=== PATIENT | male | born 1945 | race Asian ===

== ENCOUNTER 2017-03-14 17:56 | Inpatient (IN) | payer MEDICARE, BC ==
--- NOTE | 2017-03-14 18:22 | ED Physician Documentation ---
PD HPI URI - Stated complaint Stated Complaint: SOA/VOMIT - Chief complaint Chief Complaint: Resp - History obtained from History obtained from: Patient - History of Present Illness Timing - onset: How many weeks ago (1 week of general flu-like symptoms and then 2 days of particularly cough, dyspnea, and exertional dyspnea. Having heavy feeling of chest.) Timing duration: Weeks (1) Timing details: Gradual onset, Still present (cough and dyspnea has increased a lot the past 2 days.) Associated symptoms: Fever, Chills, Nasal congestion, Dry cough, Chest pain, Dyspnea, NVD. No: Hemoptysis, Bilateral edema, Unilateral edema Contributing factors: No: Sick contact, Travel, Immunocompromised, COPD / asthma Improves by: Rest Worsened by: Activity, Breathing Similar symptoms before: Has not had sx before Recently seen: Not recently seen Review of Systems Constitutional: reports: Fever, Chills, Myalgias, Fatigue Nose: reports: Congestion Throat: denies: Sore throat Cardiac: reports: Chest pain / pressure (for 2-3 days, increasing). denies: Palpitations Respiratory: reports: Dyspnea, Cough. denies: Hemoptysis GI: reports: Nausea, Vomiting. denies: Abdominal Pain, Diarrhea : denies: Dysuria, Frequency Skin: denies: Rash, Lesions Neurologic: reports: Generalized weakness. denies: Focal weakness, Numbness Psychiatric: denies: Anxiety Endocrine: denies: Weight loss Immunocompromised: denies: Immunocompromised PD PAST MEDICAL HISTORY - Past Medical History Past Medical History: Yes Cardiovascular: Hypertension, High cholesterol Respiratory: None Endocrine/Autoimmune: None GI: None : Retention HEENT: None Psych: None Musculoskeletal: Osteoarthritis, Chronic back pain Derm: None - Past Surgical History General: Colonoscopy, EGD HEENT: Tonsil/Adenoidectomy - Present Medications Home Medications: Ambulatory Orders Medication Instructions Recorded Confirmed Amlodipine Besylate 10 mg PO DAILY 03/11/14 03/14/17 Atorvastatin [Lipitor] 10 mg PO DAILY 03/11/14 03/14/17 Gabapentin 300 mg PO QPM 03/11/14 03/14/17 Metoprolol Succinate 100 mg PO BID 03/11/14 03/14/17 traMADol [Ultram] 50 mg PO Q4-6H 03/11/14 03/14/17 - Allergies Allergies/Adverse Reactions: Allergies Allergy/AdvReac Type Severity Reaction Status Date / Time Penicillins Allergy Severe Respiratory Verified 03/11/14 08:49 morphine AdvReac Itching Verified 03/11/14 08:49 - Living Situation Living Situation: reports: With spouse/s.o. Living Arrangement: reports: At home - Social History Does the pt smoke?: Yes Does the pt drink ETOH?: No Does the pt have substance abuse?: No - Family History Family history: reports: Non contributory PD ED PE NORMAL - Vitals Vital signs reviewed: Yes (93% RA at rest, but down to 88% and marked dyspnea just walking to bathroom) - General General: Alert and oriented X 3, Well developed/nourished (appears younger than stated age.) - HEENT HEENT: Ears normal, Pharynx benign. No: Moist mucous membranes - Neck Neck: Supple, no meningeal sign, No adenopathy - Cardiac Cardiac: No: RRR (regular but tachycardic) - Respiratory Respiratory: No respiratory distress. No: Clear bilaterally (congested sounds bilaterally. No fine crackles. Scattered expiratory wheezes. Normal voice. ) - Abdomen Abdomen: Soft, Non tender - Male Male : Deferred - Rectal Rectal: Deferred - Back Back: No CVA TTP - Derm Derm: Warm and dry. No: Normal color (mild pallor) - Extremities Extremities: No deformity, No tenderness to palpate, Normal ROM s pain, No edema , No calf tenderness / cord - Neuro Neuro: Alert and oriented X 3, No motor deficit, Normal speech Eye Opening: Spontaneous Motor: Obeys Commands Verbal: Oriented GCS Score: 15 - Psych Psych: Normal mood, Normal affect Results - Vitals Vitals: Vital Signs - 24 hr 03/14/17 03/14/17 03/14/17 18:02 18:06 19:25 Temperature 37.3 C Heart Rate 102 H 102 H 87 Respiratory 22 20 Rate Blood Pressure 163/89 H 163/89 H O2 Saturation 93 03/14/17 03/14/17 03/14/17 19:45 19:50 20:39 Temperature Heart Rate 119 H 104 H 97 Respiratory 33 H 22 19 Rate Blood Pressure 154/73 H O2 Saturation 88 L 92 96 03/14/17 03/14/17 21:08 21:33 Temperature Heart Rate 96 112 H Respiratory 20 20 Rate Blood Pressure 156/71 H O2 Saturation 92 Oxygen O2 Source Room air - EKG (time done) 18:09 Rate: Rate (enter#) (93) Rhythm: NSR Strang: Normal Intervals: Normal IL, Wide QRS (borderline IVCD) QRS: Poor R wave progression Ischemia: Normal ST segments. No: ST elevation c/w ischemia, ST depression Compare to prior EKG: Old EKG unavailable - Labs Labs: Laboratory Tests 03/14/17 03/14/17 03/14/17 18:40 18:48 18:48 WBC 16.4 H RBC 3.82 L Hgb 12.1 L Hct 36.4 L MCV 95.4 H MCH 31.7 H MCHC 33.2 RDW 12.5 Plt Count 408 MPV 7.1 L Neut # 13.2 H Lymph # 1.5 Cavalier # 1.4 H Eos # 0.2 Baso # 0.1 Absolute Nucleated RBC 0.00 Nucleated RBC % 0.0 Sodium 131 L Potassium 3.8 Chloride 99 L Carbon Dioxide 24 Anion Gap 8.0 BUN 16 Creatinine 0.9 Estimated GFR (MDRD) 83 L Glucose 141 H Calcium 8.1 L Total Bilirubin 0.3 AST 64 H ALT 82 H Alkaline Phosphatase 56 Troponin I < 0.04 B-Natriuretic Peptide Total Protein 7.1 Albumin 3.0 L Globulin 4.1 Albumin/Globulin Ratio 0.7 L Lipase 21 L Influenza A (Rapid) Influenza B (Rapid) Influenza Types A,B Ag 03/14/17 03/14/17 18:48 18:55 WBC RBC Hgb Hct MCV MCH MCHC RDW Plt Count MPV Neut # Lymph # Cavalier # Eos # Baso # Absolute Nucleated RBC Nucleated RBC % Sodium Potassium Chloride Carbon Dioxide Anion Gap BUN Creatinine Estimated GFR (MDRD) Glucose Calcium Total Bilirubin AST ALT Alkaline Phosphatase Troponin I B-Natriuretic Peptide 253 H Total Protein Albumin Globulin Albumin/Globulin Ratio Lipase Influenza A (Rapid) Negative Influenza B (Rapid) Negative Influenza Types A,B Ag - - Rads (name of study) chest Radiology: Prelim report reviewed (patchy infiltrates c/w pneumonia), EMP read contemporaneously Procedures - Bedside sono Bedside sono by EMP: Heart showing concentric contractions with good dynamics, and no pericardial effusion. PD MEDICAL DECISION MAKING - ED course Complexity details: reviewed results, re-evaluated patient (he is still having marked dyspnea with just walking to bathroom, with sats down to 88% and tachycardic to 112. Bedside U/S shows good dynamic beating without obvious enlargement nor pericardial effusion. Treating as pneumonia. ), considered differential, d/w patient Departure - Departure Disposition: 66 [facility] DC/Xfer Clinical Impression: Hypoxia Pneumonia Qualifiers: Pneumonia type: due to unspecified organism Laterality: bilateral Lung location : unspecified part of lung Qualified Code(s): J18.9 - Pneumonia, unspecified organism Dyspnea Qualifiers: Dyspnea type: dyspnea on exertion Qualified Code(s): R06.09 - Other forms of dyspnea Condition: Stable Record reviewed to determine appropriate education?: Yes
[2017-03-14] MEDS ORDERED: ONDANSETRON 4 MG/2 ML VIAL IVP STA (18:39)
[2017-03-14] MEDS ORDERED: SODIUM CHLORIDE 0.9% 1,000 ML IV ONE (18:39)
[2017-03-14] MEDS ORDERED: ALBUTEROL NEB 2.5 MG/3 ML INH STA (18:40)
[2017-03-14 18:55] LABS: BASOPHILS # (AUTO) 0.1 10^3/uL (0.0-0.1); BASOPHILS % (AUTO) 0.5 %; EOSINOPHILS # (AUTO) 0.2 10^3/uL (0.0-0.7); HGB - HEMOGLOBIN 12.1 g/dL (14.0-18.0); LYMPHOCYTES # (AUTO) 1.5 10^3/uL (1.5-3.5); LYMPHOCYTES % (AUTO) 9.3 %; MEAN CORPUSCULAR HEMOGLOBIN 31.7 pg (27.0-31.0); MEAN CORPUSCULAR HGB CONC 33.2 g/dL (32.0-36.0); MEAN CORPUSCULAR VOLUME 95.4 fL (80.0-94.0); MEAN PLATELET VOLUME 7.1 fL (7.4-11.4); MONOCYTES # (AUTO) 1.4 10^3/uL (0.0-1.0); MONOCYTES % (AUTO) 8.7 %; NEUTROPHILS # (AUTO) 13.2 10^3/uL (1.5-6.6); NEUTROPHILS % (AUTO) 80.5 %; PLT - PLATELET COUNT 408 10^3/uL (130-450); RED BLOOD COUNT 3.82 10^6/uL (4.70-6.10); RED CELL DISTRIBUTION WIDTH 12.5 % (12.0-15.0); WHITE BLOOD COUNT 16.4 x10^3/uL (4.8-10.8)
[2017-03-14 19:09] LABS: ALBUMIN/GLOBULIN RATIO 0.7 (1.0-2.2); BILIRUBIN,TOTAL 0.3 mg/dL (0.2-1.0); CALCIUM 8.1 mg/dL (8.5-10.3); CREATININE 0.9 mg/dL (0.6-1.2); TOTAL PROTEIN 7.1 g/dL (6.7-8.2)
--- NOTE | 2017-03-14 19:34 | XRAY Preliminary Report ---
Exam: XR CHEST 2 VIEW X-RAY IMPRESSION: Acute on chronic lung disease consisting of a small right posterior lung base infiltrate and effusion. [facility] SITE ID: [id number]
--- NOTE | 2017-03-14 19:46 | XRAY Report ---
EXAM: CHEST RADIOGRAPHY EXAM DATE: 03/14/2017 07:19 PM. CLINICAL HISTORY: Cough and dyspnea. COMPARISON: None. TECHNIQUE: 2 views. FINDINGS: Lungs/Pleura: Overexpanded. Emphysematous changes. Segmental interstitial infiltrate at the posterior basilar segment of the right lower lobe with minimal blunting of the right posterior costophrenic an gle. No pneumothorax. Mediastinum: Heart and mediastinal contours are unremarkable. Other: None. IMPRESSION: Acute on chronic lung disease consisting of a small right posterior lung base infiltrate and effusion . [facility] Referring Provider Line: [phone] SITE ID: [id number]
[2017-03-14] MEDS ORDERED: cefTRIAXone 1 GM VIAL IVP STA (19:53)
[2017-03-14] MEDS ORDERED: AZITHROMYCIN INJ 500 MG in SODIUM CHLORIDE 0.9% 250 ML IV STA (19:53)
[2017-03-14] MEDS ORDERED: DEXAMETHASONE 10 MG/ML VIAL IVP STA (20:30)
[2017-03-14] MEDS ORDERED: LEVALBUTEROL 1.25 MG/3 ML NEB INH STA (20:30)
[2017-03-14] MEDS ORDERED: PROCHLORPERAZINE 10 MG/2 ML VIAL IVP PRN (22:23)
[2017-03-14] MEDS ORDERED: HYDROcod/ACETAM 5/325 MG TABLET PO PRN (22:23)
[2017-03-14] MEDS ORDERED: SODIUM CHLORIDE FLUSH 0.9% 10 ML SYRINGE IVP PRN (22:23)
[2017-03-14] MEDS ORDERED: TEMAZEPAM 15 MG CAPSULE PO PRN (22:23)
--- NOTE | 2017-03-14 22:30 | HISTORY & PHYSICAL EXAMINATION ---
History of Present Illness - Admitted From Admitted From:: Home - History Obtained From History obtained from: patient - History of Present Illness HPI Comment/Other: Mr. Paramjit Valdez is a very pleasant 71-year-old gentleman who had the flu last week which he says he caught from his . He was getting better, then a few days ago began to have increasing shortness of breath especially when ambulating. His shortness of breath has persisted and worsened to the point where he decided he needed to come into the emergency department tonight for an evaluation. He was found to have a patchy infiltrate consistent with pneumonia and an elevated white blood cell count. His BNP is mildly elevated and his troponins are negative and there were no changes on his EKG is suggestive of acardiovascular event at this time. He desaturates down to the high 80s whenever he ambulates. History - Past Medical History Cardiovascular: reports: Hypertension, High cholesterol Respiratory: reports: None, Shortness of breath, Other (bronchitis history) Endocrine/Autoimmune: reports: None GI: reports: None MAT TESTER: reports: None : reports: Incontinence, Other (History of prostate cancer and prostate cancer surgery) HEENT: reports: None Psych: reports: None Musculoskeletal: reports: Osteoarthritis, Chronic back pain Derm: reports: None MRSA Hx?: No - Past Surgical History General: reports: Colonoscopy, EGD /MAT TESTER: reports: Other (History of prostate surgery) HEENT: reports: Tonsil/Adenoidectomy - Family & Social History Family History: Mother: , Cancer, Hypertension, Father: , CVA/ TIA, Hyperlipidemia, Brother: Living arrangement: At home Living Situation: With spouse/s.o. - Substance History Use: Uses substance without health or social issues: Alcohol Tobacco Details: Cigarettes, Other (Patient smoked for 30 years and quit 30 years ago.) - POLST Patient has POLST: Yes POLST Status: DNR Meds/Allgy - Home Medications Home Medications: Ambulatory Orders Medication Instructions Recorded Confirmed Amlodipine Besylate 10 mg PO DAILY 03/11/14 03/14/17 Atorvastatin [Lipitor] 10 mg PO DAILY 03/11/14 03/14/17 Gabapentin 300 mg PO QPM 03/11/14 03/14/17 Metoprolol Succinate 100 mg PO BID 03/11/14 03/14/17 traMADol [Ultram] 50 mg PO Q4-6H 03/11/14 03/14/17 - Allergies Allergies/Adverse Reactions: Allergies Allergy/AdvReac Type Severity Reaction Status Date / Time Penicillins Allergy Severe Respiratory Verified 03/11/14 08:49 morphine AdvReac Itching Verified 03/11/14 08:49 Review of Systems - Constitutional Constitutional: reports: Fatigue, Weakness. denies: Fever, Chills, Malaise - Eyes Eyes: denies: Pain, Irritation, Blurred vision, Field loss, Dipolpia - Ears, Nose & Throat Ears, Nose & Throat: denies: Ear pain, Hearing loss, Tinnitus, Vertigo, Nasal pain, Nasal discharge - Cardiovascular Cariovascular: denies: Irregular heart rate, Palpitations, Chest pain, Edema - Respiratory Respiratory: reports: Cough, Sputum production, SOB with exertion. denies: Wheezing, Snoring, Hemoptysis, Orthopnea, SOB at rest - Gastrointestinal Gastrointestinal: denies: Abdominal pain, Abdominal distention, Constipation, Diarrhea, Change in bowel habits, Rectal bleeding - Genitourinary Genitourinary: denies: Dysuria, Frequency, Urgency, Hematuria - Musculoskeletal Musculoskeletal: denies: Muscle pain, Back pain, Muscle aches, Stiffness - Integumentary Integumentary: denies: Rash, Pruritis, Lesions, Dryness - Neurological Neurological: denies: General weakness, Focal weakness, Headache, Numbness - Psychiatric Psychiatric: denies: Depression, Anxiety, Suicidal, Hallucinations - Endocrine Endocrine: denies: Polyuria, Polydypsia, Polyphagia - Hematologic/Lymphatic Hematologic/Lymphatic: denies: Anemia, Bruising, Petechiae, Lymphadenopathy - All Other Systems All Other Systems: reports: Reviewed and negative Exam - Vital Signs Reviewed Vital Signs: Yes Vital Signs: Vital Signs x48h Temp Pulse Resp BP Pulse Ox 03/14/17 21:33 112 H 20 156/71 H 92 03/14/17 21:08 96 20 03/14/17 20:39 97 19 154/73 H 96 03/14/17 19:50 104 H 22 92 03/14/17 19:45 119 H 33 H 88 L 03/14/17 19:25 87 20 03/14/17 18:06 102 H 163/89 H 03/14/17 18:02 37.3 C 102 H 22 163/89 H 93 - Physical Exam General Appearance: positive: No acute distress, Alert Eyes Bilateral: positive: Normal inspection, PERRL, EOMI, No lid inflammation, Conjunctivae nml ENT: positive: ENT inspection nml, Pharynx nml, No signs of dehydration Neck: positive: Nml inspection, Thyroid nml, No JVD, Trachea midline. negative : Thyromegaly Respiratory: positive: Chest non-tender, No respiratory distress, Breath sounds nml. negative: Wheezes, Rales, Rhonchi Cardiovascular: positive: Regular rate & rhythm, No murmur, No gallop Peripheral Pulses: positive: 1+ Abdomen: positive: Non-tender, No organomegaly, Nml bowel sounds, No distention. negative: Guarding, Rebound Back: positive: Nml inspection. negative: CVA tenderness (R), CVA tenderness (L ) Skin: positive: Color nml, No rash, Warm, Dry. negative: Cyanosis Extremities: positive: Non-tender, Full ROM, Nml appearance, No pedal edema Neurologic/Psychiatric: positive: Oriented x3, CN's nml (2-12), Motor nml, Sensation nml, Mood/affect nml Conclusion/Plan - Problem List (1) Pneumonia Conclusion/Plan: The patient shows emphysematous changes on chest x-ray with a right posterior infiltrate. We will continue the ceftriaxone and azithromycin IV antibiotics and supplemental oxygen. We will add nebulizer treatments 4 times a day and monitor the patient's vital signs and lab values closely. Qualifiers: Qualified Code(s): J18.9 - Pneumonia, unspecified organism (2) Hypoxia Conclusion/Plan: We will continue the patient on supplemental oxygen, IV antibiotics, and nebulizer treatments as needed. - Lab Results Lab results reviewed: Yes Fish Bones: 03/14/17 18:40 03/14/17 18:48 - Diagnostic Imaging Results Diagnostic Imaging Results: positive: Final report reviewed Diagnostic Imaging Results Comments: EXAM: CHEST RADIOGRAPHY EXAM DATE: 03/14/2017 07:19 PM. CLINICAL HISTORY: Cough and dyspnea. COMPARISON: None. TECHNIQUE: 2 views. FINDINGS: Lungs/Pleura: Overexpanded. Emphysematous changes. Segmental interstitial infiltrate at the posterior basilar segment of the right lower lobe with minimal blunting of the right posterior costophrenic angle. No pneumothorax. Mediastinum: Heart and mediastinal contours are unremarkable. Other: None. IMPRESSION: Acute on chronic lung disease consisting of a small right posterior lung base infiltrate and effusion. Core Measures - Anticipated LOS I expect patient to be DC'd or transferred within 96 hours.: Yes - DVT/VTE - Prophylaxis VTE/DVT Device ordered at admit?: Yes
[2017-03-14] MEDS ORDERED: PANTOPRAZOLE 40 MG TABLET PO STA (23:12)
[2017-03-14] MEDS ORDERED: PANTOPRAZOLE 40 MG TABLET PO SCH (23:16)
[2017-03-14] MEDS: D5.45NS W/20 MEQ KCL 1,000 ML IV SCH (23:52)
[2017-03-15] MEDS: METOPROLOL SUCCINATE 50 MG TABLET PO SCH ×3 (00:20→21:11)
[2017-03-15] MEDS: GABAPENTIN 300 MG CAPSULE PO SCH ×2 (00:22→21:11)
[2017-03-15] MEDS ORDERED: PHENOL THROAT SPRAY 177 ML MM PRN (00:26)
[2017-03-15] MEDS ORDERED: ATORVASTATIN 10 MG TABLET PO SCH (00:30)
[2017-03-15] MEDS: BENZOCAINE/MENTHOL LOZENGE MM PRN ×2 (00:40→21:11)
[2017-03-15] MEDS: SODIUM CHLORIDE FLUSH 0.9% 10 ML SYRINGE IVP SCH ×3 (03:49→21:10)
[2017-03-15 05:54] LABS: BASOPHILS % (AUTO) 0.2 %; LYMPHOCYTES # (AUTO) 0.8 10^3/uL (1.5-3.5); LYMPHOCYTES % (AUTO) 6.1 %; MEAN CORPUSCULAR HEMOGLOBIN 31.8 pg (27.0-31.0); MEAN CORPUSCULAR HGB CONC 33.6 g/dL (32.0-36.0); MEAN CORPUSCULAR VOLUME 94.4 fL (80.0-94.0); MEAN PLATELET VOLUME 7.3 fL (7.4-11.4); MONOCYTES # (AUTO) 0.4 10^3/uL (0.0-1.0); MONOCYTES % (AUTO) 2.7 %; NEUTROPHILS # (AUTO) 12.1 10^3/uL (1.5-6.6); PLT - PLATELET COUNT 383 10^3/uL (130-450); RED BLOOD COUNT 3.45 10^6/uL (4.70-6.10); RED CELL DISTRIBUTION WIDTH 12.6 % (12.0-15.0); WHITE BLOOD COUNT 13.3 x10^3/uL (4.8-10.8)
[2017-03-15 06:04] LABS: CALCIUM 7.9 mg/dL (8.5-10.3); CREATININE 0.9 mg/dL (0.6-1.2)
[2017-03-15] MEDS ORDERED: cefTRIAXone 2 GM VIAL ONE (08:21)
[2017-03-15] MEDS: AZITHROMYCIN 250 MG TABLET PO SCH (08:22)
[2017-03-15] MEDS: PANTOPRAZOLE 40 MG TABLET PO SCH (08:22)
[2017-03-15] MEDS: ATORVASTATIN 10 MG TABLET PO SCH (08:22)
[2017-03-15] MEDS: amLODIPine 5 MG TABLET PO SCH (08:23)
[2017-03-15] MEDS: D5.45NS W/20 MEQ KCL 1,000 ML IV SCH (08:24)
[2017-03-15] MEDS: POLYETHYLENE GLYCOL 3350 17 GM PACKET PO SCH (08:25)
[2017-03-15] MEDS ORDERED: METOPROLOL SUCCINATE 50 MG TABLET PO SCH (09:00)
[2017-03-15] MEDS ORDERED: cefTRIAXone 2 GM in SODIUM CHLORIDE 0.9% MINIBAG 100 ML IV SCH (09:00)
[2017-03-15] MEDS: traMADol 50 MG TABLET PO PRN ×2 (14:29→21:18)
--- NOTE | 2017-03-15 14:50 | PROVIDER PROGRESS NOTE ---
Subjective - Prog Note Date Prog Note Date: 03/15/17 Prog Note Time: 12:00 - Subjective Pt reports feeling: Improved Subjective: Paramjit admits to feeling much improved since the time of admission. He denies chest pain, SOB, N/V or a new cough. Current Medications - Current Medications Current Medications: Active Medications Acetaminophen/Hydrocodone Bitart (Nunnelly 5/325) 1 tab PO Q4HR PRN PRN Reason: Pain 5 to 7 Last Admin: 03/15/17 00:30 Dose: 1 tab Amlodipine Besylate (Norvasc) 10 mg PO DAILY [facility] Last Admin: 03/15/17 08:23 Dose: 10 mg Atorvastatin Calcium (Lipitor) 10 mg PO DAILY [facility] Last Admin: 03/15/17 08:22 Dose: 10 mg Azithromycin (Zithromax) 500 mg PO DAILY [facility] Last Admin: 03/15/17 08:22 Dose: 500 mg Gabapentin (Neurontin) 300 mg PO QPM [facility] Last Admin: 03/15/17 00:22 Dose: 300 mg Guaifenesin (Mucinex) 600 mg PO BID [facility] Ceftriaxone Sodium 2 gm/ (Sodium Chloride) 100 mls @ 200 mls/hr IV DAILY [facility] Last Infusion: 03/15/17 08:53 Dose: Infused Metoprolol Succinate (Toprol Xl) 100 mg PO BID [facility] Last Admin: 03/15/17 08:21 Dose: 100 mg Pantoprazole Sodium (Protonix) 40 mg PO DAILY [facility] Last Admin: 03/15/17 08:22 Dose: 40 mg Phenol/Menthol (Chloraseptic) 2 sprays MM Q2HR PRN PRN Reason: Throat Pain Last Admin: 03/15/17 00:40 Dose: 2 sprays Polyethylene Glycol (Miralax) 17 gm PO DAILY [facility] Last Admin: 03/15/17 08:25 Dose: Not Given Prochlorperazine Edisylate (Compazine Inj) 10 mg IVP Q6HR PRN PRN Reason: Nausea / Vomiting Sodium Chloride (Normal Saline Flush 0.9%) 10 ml IVP PRN PRN PRN Reason: NEEDED PER PROVIDER ORDERS Sodium Chloride (Normal Saline Flush 0.9%) 10 ml IVP Q8HR [facility] Last Admin: 03/15/17 03:49 Dose: Not Given Temazepam (Restoril) 15 mg PO QPM PRN PRN Reason: Insomnia Last Admin: 03/15/17 00:22 Dose: 15 mg Throat Lozenges (Cepacol) 1 lozenge MM Q2HR PRN PRN Reason: Throat pain Last Admin: 03/15/17 00:40 Dose: 1 lozenge Tramadol HCl (Ultram) 50 mg PO Q4H PRN PRN Reason: PAIN Last Admin: 03/15/17 14:29 Dose: 50 mg Amlodipine Besylate 10 mg PO DAILY 03/11/14 Atorvastatin [Lipitor] 10 mg PO QPM 03/11/14 Gabapentin 300 mg PO QPM 03/11/14 traMADol [Ultram] 100 mg PO QPM 03/11/14 Aspirin [Aspirin EC] 81 mg PO DAILY 03/15/17 Metoprolol Tartrate 100 mg PO BID 03/15/17 traMADol [Ultram] 50 mg PO Q6H PRN 03/15/17 Objective - Vital Signs/Intake & Output Reviewed Vital Signs: Yes Vital Signs: Vital Signs x48h Temp Pulse Resp BP Pulse Ox 03/15/17 07:58 36.2 C L 81 12 149/62 H 96 Intake & Output: Intake & Output 03/12/17 03/13/17 03/14/17 03/15/17 23:59 23:59 23:59 23:59 Intake Total 1863.333 Balance 1863.333 - Objective General Appearance: positive: No acute distress Eyes Bilateral: positive: Normal inspection, PERRL ENT: positive: ENT inspection nml, Pharynx nml, No signs of dehydration Neck: positive: Nml inspection, Thyroid nml, No JVD, Trachea midline Respiratory: positive: Chest non-tender, No respiratory distress, Other ( diminished with scattered crackles.) Cardiovascular: positive: Regular rate & rhythm, No gallop, Systolic murmur, Decreased pulse(s) Peripheral Pulses: 1+ Radial (R), 1+ Radial (L) Abdomen: positive: Non-tender, No organomegaly, Nml bowel sounds, No distention Back: positive: Nml inspection Skin: positive: No rash, Warm, Dry Extremities: positive: Non-tender, Full ROM, Nml appearance, Pedal edema (mild) Neurologic/Psychiatric: positive: Oriented x3, CN's nml (2-12), Motor nml, Sensation nml, Mood/affect nml Reflexes: Bicep (R): 3+, Bicep (L): 3+ - Lab Results Fish Bones: 03/15/17 05:34 03/15/17 05:34 Other Labs: Lab Results x24hrs 03/15/17 03/15/17 Range/Units 05:34 05:34 WBC 13.3 H (4.8-10.8) x10^3/uL RBC 3.45 L (4.70-6.10) 10^6/uL Hgb 11.0 L (14.0-18.0) g/dL Hct 32.6 L (42.0-52.0) % MCV 94.4 H (80.0-94.0) fL MCH 31.8 H (27.0-31.0) pg MCHC 33.6 (32.0-36.0) g/dL RDW 12.6 (12.0-15.0) % Plt Count 383 (130-450) 10^3/uL MPV 7.3 L (7.4-11.4) fL Neut # 12.1 H (1.5-6.6) 10^3/uL Lymph # 0.8 L (1.5-3.5) 10^3/uL [place] # 0.4 (0.0-1.0) 10^3/uL Eos # 0.0 (0.0-0.7) 10^3/uL Baso # 0.0 (0.0-0.1) 10^3/uL Absolute Nucleated RBC 0.00 x10^3/uL Nucleated RBC % 0.0 /100WBC Sodium 134 L (135-145) mmol/L Potassium 5.1 H (3.5-5.0) mmol/L Chloride 103 (101-111) mmol/L Carbon Dioxide 23 (21-32) mmol/L Anion Gap 8.0 (6-13) BUN 14 (6-20) mg/dL Creatinine 0.9 (0.6-1.2) mg/dL Estimated GFR (MDRD) 83 L (>89) Glucose 182 H (70-100) mg/dL Calcium 7.9 L (8.5-10.3) mg/dL - Diagnostic Imaging Diagnostic Imaging Results: positive: Final report reviewed Diagnostic Imaging Comments: EXAM: CHEST RADIOGRAPHY EXAM DATE: 03/14/2017 07:19 PM. CLINICAL HISTORY: Cough and dyspnea. COMPARISON: None. TECHNIQUE: 2 views. FINDINGS: Lungs/Pleura: Overexpanded. Emphysematous changes. Segmental interstitial infiltrate at the posterior basilar segment of the right lower lobe with minimal blunting of the right posterior costophrenic angle. No pneumothorax. Mediastinum: Heart and mediastinal contours are unremarkable. Other: None. IMPRESSION: Acute on chronic lung disease consisting of a small right posterior lung base infiltrate and effusion. Assessment/Plan - Problem List (1) Right lower lobe pneumonia Impression: A chest x-ray was completed at the time of admission and reveals a right low lobe infiltrate. He admits to a continued cough that has not been productive. Plan: Continue IV antibiotics and newly prescribed musinex for productive cough. Attempt to obtain a sputum sample. (2) Hypoxia Impression: Patient was profoundly short of breath when presenting to the ED. He received nebulizers, which he claims "did not work". Now remains off oxygen and with nebulizers. Plan: Will add PRN nebulizers and incentive spirometry per RT. (3) Hypertension Impression: This condition is likely related to age and smoking history. Blood pressure 149 /62 and stable. Plan: Continue current medications with home meds and monitor vital signs.
[2017-03-15] MEDS: LEVALBUTEROL 1.25 MG/3 ML NEB INH PRN (15:33)
[2017-03-15] MEDS: guaiFENesin 600 MG TABLET PO SCH ×2 (16:20→21:11)
[2017-03-15] MEDS ORDERED: GABAPENTIN 300 MG CAPSULE PO SCH (21:00)
[2017-03-16] MEDS: BENZOCAINE/MENTHOL LOZENGE MM PRN (00:44)
[2017-03-16 05:33] LABS: BASOPHILS % (AUTO) 0.2 %; HGB - HEMOGLOBIN 11.1 g/dL (14.0-18.0); LYMPHOCYTES # (AUTO) 1.7 10^3/uL (1.5-3.5); LYMPHOCYTES % (AUTO) 9.9 %; MEAN CORPUSCULAR HEMOGLOBIN 30.8 pg (27.0-31.0); MEAN CORPUSCULAR VOLUME 96.2 fL (80.0-94.0); MEAN PLATELET VOLUME 7.4 fL (7.4-11.4); MONOCYTES # (AUTO) 1.5 10^3/uL (0.0-1.0); MONOCYTES % (AUTO) 8.5 %; NEUTROPHILS # (AUTO) 14.2 10^3/uL (1.5-6.6); NEUTROPHILS % (AUTO) 81.4 %; PLT - PLATELET COUNT 444 10^3/uL (130-450); RED BLOOD COUNT 3.59 10^6/uL (4.70-6.10); RED CELL DISTRIBUTION WIDTH 12.9 % (12.0-15.0); WHITE BLOOD COUNT 17.5 x10^3/uL (4.8-10.8)
[2017-03-16 05:38] LABS: CALCIUM 8.3 mg/dL (8.5-10.3); CREATININE 0.9 mg/dL (0.6-1.2)
[2017-03-16] MEDS: SODIUM CHLORIDE FLUSH 0.9% 10 ML SYRINGE IVP SCH (05:57)
[2017-03-16] MEDS: LEVALBUTEROL 1.25 MG/3 ML NEB INH PRN (08:36)
[2017-03-16 08:59] VITALS: BP 153/65
[2017-03-16] MEDS: POLYETHYLENE GLYCOL 3350 17 GM PACKET PO SCH (09:24)
[2017-03-16] MEDS: guaiFENesin 600 MG TABLET PO SCH (09:25)
[2017-03-16] MEDS: amLODIPine 5 MG TABLET PO SCH (09:25)
[2017-03-16] MEDS: METOPROLOL SUCCINATE 50 MG TABLET PO SCH (09:25)
[2017-03-16] MEDS: PANTOPRAZOLE 40 MG TABLET PO SCH (09:25)
[2017-03-16] MEDS: AZITHROMYCIN 250 MG TABLET PO SCH (09:25)
[2017-03-16] MEDS: traMADol 50 MG TABLET PO PRN (09:25)
[2017-03-16] MEDS: ATORVASTATIN 10 MG TABLET PO SCH (10:13)
--- NOTE | 2017-03-16 10:51 | Discharge Plan ---
Discharge Plan Disposition: 01 Home, Self Care Condition: Good Prescriptions: Fluticasone/Salmeterol [Advair 250-50 Diskus] 1 each IH BID #1 blst.w.dev guaiFENesin [Mucinex] 600 mg PO BID #60 tablet levoFLOXacin [Levofloxacin] 500 mg PO DAILY 7 Days #7 tablet Saccharomyces Boulardii [Florastor] 250 mg PO BID 14 Days #28 capsule Diet: Regular Activity Restrictions: No Restrictions Shower Restrictions: No Driving Restrictions: No Weight Bearing: Full Weight Additional Instructions or Follow Up instructions: You were admitted to the hospital after having the flu that developed into pneumonia. I recommended a long term acute care registered nurse inhaler to prevent further illnesses. Please see your PCP within one week of this stay. Take all of your medications as prescribed. No Smoking: If you smoke, Please STOP! Call for help. Follow-up with: Dionicio Barksdale MD [Primary Care Provider] -
[2017-03-16 10:54] LABS: HEMOGLOBIN A1C 0.49 g/dL; HEMOGLOBIN A1C % 5.9 % (4.6-6.2)
--- NOTE | 2017-03-16 11:03 | DISCHARGE SUMMARY ---
Discharge Summary Admit Date: 03/14/17 Discharge Date: 03/16/17 Discharging Provider: KWAN Manzo Primary Care Provider: Dionicio Barksdale Code Status: Attempt Resuscitation Condition at Discharge: Good Discharge Disposition: 01 Home, Self Care - DIAGNOSES Admission Diagnoses: Pneumonia, unspecified organism (J18.9) Hypoxemia (R09.02) Discharge Diagnoses with Status of Each Condition: Right lower lobe pneumonia (J18.1) Hypoxia (R09.02) Hypertension (I10) COPD (chronic obstructive pulmonary disease) (J44.9) - HPI History of Present Illness: HPI per Dr. Lai: Mr. Paramjit Valdez is a very pleasant 71-year-old gentleman who had the flu last week which he says he caught from his . He was getting better, then a few days ago began to have increasing shortness of breath especially when ambulating. His shortness of breath has persisted and worsened to the point where he decided he needed to come into the emergency department tonight for an evaluation. He was found to have a patchy infiltrate consistent with pneumonia and an elevated white blood cell count. His BNP is mildly elevated and his troponins are negative and there were no changes on his EKG is suggestive of acardiovascular event at this time. He desaturates down to the high 80s whenever he ambulates. - HOSPITAL COURSE Hospital Course: The following problems/diagnoses were prevalent during this hospital stay: Right lower lobe pneumonia: A chest x-ray was completed at the time of admission and reveals a right low lobe infiltrate. He admits to a continued cough that has not been productive. Patient was continued on IV antibiotics and newly prescribed musinex for productive cough. No sputum sample was collected. Patient was compliant with bedside incentive spirometer. He was prescribed PO antibiotics and a probiotic for discharge. Hypoxia: Patient was profoundly short of breath when presenting to the ED. He received nebulizers, which he claims "did not work". Now remains off oxygen and with nebulizers. PRN nebulizers and incentive spirometry per RT. Hypertension: This condition is likely related to age and smoking history. Blood pressure remained stable throughout his stay. He was continued on home medications and his vital signs were monitored. COPD: Patient likely has this due to his long tobacco dependence history. He has quit for several years now, but remains with a early AM chronic cough. He was prescribed Advair to be used every 12 hours at home and should follow up with PCP. Disposition: Patient was discharged via private car and in stable condition. He was well appearing and did not require oxygen. - ALLERGIES Allergies/Adverse Reactions: Allergies Allergy/AdvReac Type Severity Reaction Status Date / Time Penicillins Allergy Severe Respiratory Verified 03/11/14 08:49 morphine AdvReac Itching Verified 03/11/14 08:49 - MEDICATIONS Home Medications: Ambulatory Orders Medication Instructions Recorded Confirmed Amlodipine Besylate 10 mg PO DAILY 03/11/14 03/15/17 Atorvastatin [Lipitor] 10 mg PO QPM 03/11/14 03/15/17 Gabapentin 300 mg PO QPM 03/11/14 03/15/17 traMADol [Ultram] 100 mg PO QPM 03/11/14 03/15/17 Aspirin [Aspirin EC] 81 mg PO DAILY 03/15/17 03/15/17 Metoprolol Tartrate 100 mg PO BID 03/15/17 03/15/17 traMADol [Ultram] 50 mg PO Q6H PRN 03/15/17 03/15/17 Fluticasone/Salmeterol [Advair 1 each IH BID #1 blst.w.dev 03/16/17 250-50 Diskus] Saccharomyces Boulardii [Florastor] 250 mg PO BID 14 Days #28 capsule 03/16/17 guaiFENesin [Mucinex] 600 mg PO BID #60 tablet 03/16/17 levoFLOXacin [Levofloxacin] 500 mg PO DAILY 7 Days #7 tablet 03/16/17 - PHYSICAL EXAM AT DISCHARGE General Appearance: positive: No acute distress, Alert Eyes Bilateral: positive: Normal inspection, PERRL ENT: positive: ENT inspection nml, Pharynx nml, No signs of dehydration Neck: positive: Nml inspection, Thyroid nml, No JVD, Trachea midline Respiratory: positive: Chest non-tender, No respiratory distress, Other ( diminshed, with scattered crackles.) Cardiovascular: positive: Regular rate & rhythm, No murmur, No gallop Peripheral Pulses: positive: 2+ Abdomen: positive: Non-tender, No organomegaly, Nml bowel sounds, No distention Back: positive: Nml inspection Skin: positive: No rash, Warm, Dry Extremities: positive: Non-tender, Full ROM, Nml appearance, No pedal edema Neurologic/Psychiatric: positive: Oriented x3, CN's nml (2-12), Motor nml, Sensation nml, Depressed mood/affect Reflexes: Bicep (R): 3+, Bicep (L): 3+ - LABS Result Diagrams: 03/16/17 05:06 03/16/17 05:06 - DIAGNOSTIC IMAGING Diagnostic Imaging Results: Final report reviewed Diagnostic Imaging Results Comments: Chest x-ray: FINDINGS: Lungs/Pleura: Overexpanded. Emphysematous changes. Segmental interstitial infiltrate at the posterior basilar segment of the right lower lobe with minimal blunting of the right posterior costophrenic angle. No pneumothorax. Mediastinum: Heart and mediastinal contours are unremarkable. Other: None. IMPRESSION: Acute on chronic lung disease consisting of a small right posterior lung base infiltrate and effusion. - FOLLOW UP Follow Up: Disposition: 01 Home, Self Care Condition: Good Prescriptions: Fluticasone/Salmeterol [Advair 250-50 Diskus] 1 each IH BID #1 blst.w.dev guaiFENesin [Mucinex] 600 mg PO BID #60 tablet levoFLOXacin [Levofloxacin] 500 mg PO DAILY 7 Days #7 tablet Saccharomyces Boulardii [Florastor] 250 mg PO BID 14 Days #28 capsule Diet: Regular Activity Restrictions: No Restrictions Shower Restrictions: No Driving Restrictions: No Weight Bearing: Full Weight Additional Instructions or Follow Up instructions: You were admitted to the hospital after having the flu that developed into pneumonia. I recommended a termination clerk inhaler to prevent further illnesses. Please see your PCP within one week of this stay. Take all of your medications as prescribed. - TIME SPENT Time Spent in Discharge (Minutes): 45
== END 2017-03-16 12:29 | disposition home or self-care (01) | DRG 194 ==
LOC: ED 17:56 → MS2 22:23
PROVIDERS: ADMIT Hospitalist; ATTEND Nurse Practitioner
DX: J18.9 Pneumonia, unspecified organism (principal); J44.0 Chronic obstructive pulmonary disease with (acute) lower respiratory infection; R09.02 Hypoxemia; I10 Essential (primary) hypertension; E78.00 Pure hypercholesterolemia, unspecified; M54.9 Dorsalgia, unspecified; G89.29 Other chronic pain; Z87.891 Personal history of nicotine dependence; Z88.0 Allergy status to penicillin; Z85.46 Personal history of malignant neoplasm of prostate
CPT/HCPCS: 36415; 71046; 80048; 80053; 83036; 83690; 83880; 84484; 85025; 87040; 87275; 87276; 93005; 94640; 96361; 96365; 96375; 99284; 99285

== ENCOUNTER 2023-09-10 07:48 | Outpatient (CLI) | payer BC ==
[2023-09-10 15:12] LABS: BASOPHILS # (AUTO) 0.1 10^3/uL (0.0-0.1); BASOPHILS % (AUTO) 0.9 %; EOSINOPHILS # (AUTO) 0.3 10^3/uL (0.0-0.7); EOSINOPHILS % (AUTO) 3.9 %; HCT - HEMATOCRIT 42.3 % (42.0-52.0); HGB - HEMOGLOBIN 13.3 g/dL (14.0-18.0); LYMPHOCYTES # (AUTO) 1.9 10^3/uL (1.5-3.5); LYMPHOCYTES % (AUTO) 22.7 %; MEAN CORPUSCULAR HEMOGLOBIN 31.4 pg (27.0-31.0); MEAN CORPUSCULAR HGB CONC 31.4 g/dL (32.0-36.0); MEAN PLATELET VOLUME 10.2 fL (7.4-11.4); MONOCYTES # (AUTO) 0.9 10^3/uL (0.0-1.0); MONOCYTES % (AUTO) 11.2 %; NEUTROPHILS % (AUTO) 60.8 %; PLT - PLATELET COUNT 266 10^3/uL (130-450); RED BLOOD COUNT 4.23 10^6/uL (4.70-6.10); RED CELL DISTRIBUTION WIDTH 12.9 % (12.0-15.0); WHITE BLOOD COUNT 8.2 x10^3/uL (4.8-10.8)
[2023-09-10 15:27] LABS: ESTIMATED AVERAGE GLUCOSE 111 mg/dL (70-100); HEMOGLOBIN A1c% 5.5 % (4.27-6.07)
[2023-09-10 15:31] LABS: CHOL/HDL RATIO 3.3 (<5.0); CHOLESTEROL 103 mg/dL; HDL CHOLESTEROL 31 mg/dL; LDL CHOLESTEROL,CALCULATED 44 mg/dL; LDL/HDL RATIO 1.4 (<3.6); TRIGLYCERIDES 141 mg/dL; VLDL CHOLESTEROL 28 mg/dL
[2023-09-10 15:33] LABS: ALBUMIN 4.3 g/dL (3.2-5.5); ALBUMIN/GLOBULIN RATIO 1.7 (1.0-2.2); ALKALINE PHOSPHATASE 57 IU/L (42-121); ALT ALANINE AMINOTRANSFERASE 23 IU/L (10-60); AST ASPARTATE AMINOTRANSFERASE 21 IU/L (10-42); BILIRUBIN,TOTAL 0.5 mg/dL (0.2-1.0); BUN - BLOOD UREA NITROGEN 24 mg/dL (6-20); CALCIUM 9.3 mg/dL (8.5-10.3); CARBON DIOXIDE - CO2 30 mmol/L (21-32); CHLORIDE 105 mmol/L (101-111); CREATININE 1.2 mg/dL (0.6-1.3); GFR - MDRD 59 (>89); GLUCOSE 90 mg/dL (74-104); POTASSIUM 4.7 mmol/L (3.5-4.5); SODIUM 137 mmol/L (135-145); TOTAL PROTEIN 6.8 g/dL (6.4-8.9)
[2023-09-10 15:43] LABS: THYROID STIMULATING HORMONE 3.23 uIU/mL (0.34-5.60)
== END 2023-09-10 07:49 | disposition home or self-care (01) ==
LOC: LAB.S 07:48
DX: Z00.00 Encounter for general adult medical examination without abnormal findings (principal); I10 Essential (primary) hypertension
CPT/HCPCS: 36415; 80053; 80061; 83036; 83721; 84153; 84443; 85025